=== PATIENT | male | born 1975 | race Caucasian/White ===

== ENCOUNTER 2019-04-05 19:11 | Emergency (ER) | payer MEDICARE, OTHER ==
[2019-04-05 19:18] VITALS: BP 122/84; PULSE 109; RESP 16; TEMP 98.1
[2019-04-05] MEDS ORDERED: KETOROLAC 60 MG/2 ML VIAL IM STA (19:35)
--- NOTE | 2019-04-05 19:37 | ED ---
Back Pain HPI - General Chief Complaint: Back Pain/Injury Stated Complaint: fall Time Seen by Provider: 04/05/19 19:19 Source: patient Limitations: no limitations - History of Present Illness Initial Comments: Patient is a 44-year-old male presenting to the emergency Department with complaints of left-sided back pain. Patient states he slipped and fell on ice 3 days ago landing onto a box he was carrying. Patient states he landed mostly on his left side with landing on the corner of the box. Patient states he had some mild tenderness at first but then the next day he noted some increase in soreness of the left thoracic area and it increases with deep breathing as well as twisting. Patient thinks he might have done something to one of his ribs. He denies any urinary complaints. He denies fever, chills. He denies chest pain, shortness of breath. He has no other complaints at this time. Upon arrival to the ER his vital signs are stable. - Related Data Previous Rx's Medication Instructions Recorded Ibuprofen [Motrin] 800 mg PO Q6HR #20 tab 04/05/19 Allergies Allergy/AdvReac Type Severity Reaction Status Date / Time erythromycin base Allergy Nausea & Verified 04/05/19 19:18 Vomiting Review of Systems ROS Statement: Those systems with pertinent positive or pertinent negative responses have been documented in the HPI. ROS Other: All systems not noted in ROS Statement are negative. Past Medical History Past Medical History: No Reported History History of Any Multi-Drug Resistant Organisms: None Reported Past Surgical History: Back Surgery, Orthopedic Surgery Past Psychological History: Bipolar Smoking Status: Current every day smoker Past Alcohol Use History: None Reported Past Drug Use History: None Reported General Exam - General Exam Comments Initial Comments: GENERAL: Well-appearing, well-nourished and in no acute distress. HEAD: Atraumatic, normocephalic. EYES: Pupils equal round and reactive to light, extraocular movements intact, sclera anicteric, conjunctiva are normal. ENT: TMs normal, nares patent, oropharynx clear without exudates. Moist mucous membranes. NECK: Normal range of motion, supple without lymphadenopathy or JVD. LUNGS: Breath sounds clear to auscultation bilaterally and equal. No wheezes rales or rhonchi. HEART: Regular rate and rhythm without murmurs, rubs or gallops. ABDOMEN: Soft, nontender, normoactive bowel sounds. No guarding, no rebound. No masses appreciated. : Deferred EXTREMITIES: Normal range of motion, no pitting or edema. No clubbing or cyanosis. Patient has mild tenderness of the left thoracic area. There is no bruising or swelling of the area. He does have increased pain with trunk rotation. NEUROLOGICAL: Normal speech, normal gait. PSYCH: Normal mood, normal affect. SKIN: Warm, Dry, normal turgor, no rashes or lesions noted. Limitations: no limitations Course Vital Signs 04/05/19 19:14 Temperature 98.1 F Pulse Rate 109 H Respiratory 16 Rate Blood Pressure 122/84 O2 Sat by Pulse 99 Oximetry Medical Decision Making - Medical Decision Making Patient is a 44-year-old male presenting with left thoracic soreness after falling onto a box he was carrying. Patient's exam reveals some mild soreness the left thoracic area no bruising or deformity seen. X-rays of the chest and the left-sided ribs show no acute fractures or any other findings. I discussed this with the patient. This is most likely a muscle contusion. Patient will be given Toradol in the ER and will continue to take ibuprofen at home. He can use heat and ice the area as well. He is stable for discharge and he is in agreement with this plan of care. Open this PCP if symptoms persist. Return parameters were discussed with the patient and he verbalized understanding. Disposition Clinical Impression: Thoracic back pain, Fall, Contusion of rib on left side Disposition: HOME SELF-CARE Condition: Stable Instructions (If sedation given, give patient instructions): Rib Contusion (ED) Additional Instructions: Please return to the Emergency Department if symptoms worsen or any other concerns. Use heat and/or ice to the area. May take Tylenol or Motrin for pain relief. Prescriptions: Ibuprofen [Motrin] 800 mg PO Q6HR #20 tab Is patient prescribed a controlled substance at d/c from ED?: No Referrals: Garcia Oakley MD [Primary Care Provider] - 1-2 days
--- NOTE | 2019-04-05 20:08 | XR ---
EXAMINATION TYPE: XR ribs LT w pa chest xray DATE OF EXAM: 04/05/2019 COMPARISON: NONE HISTORY: Pain after a fall TECHNIQUE: 5 views FINDINGS: Heart and mediastinum are normal. Lungs are clear. There is no pleural effusion or pneumoth orax. The left ribs appear intact. IMPRESSION: Normal chest. Normal left ribs. Mild thoracic dextroscoliosis.
== END 2019-04-05 20:20 | disposition home or self-care (01) ==
LOC: EC 19:11
DX: S20.212A Contusion of left front wall of thorax, initial encounter (principal); M54.6 Pain in thoracic spine; F17.200 Nicotine dependence, unspecified, uncomplicated; Z88.1 Allergy status to other antibiotic agents; Z98.890 Other specified postprocedural states; W00.0XXA Fall on same level due to ice and snow, initial encounter; Y93.F2 Activity, caregiving, lifting
CPT/HCPCS: 71101; 99283; 96372; J1885